=== PATIENT | female | born 1950 | race Caucasian/White ===

== ENCOUNTER → 2017-02-24 | Outpatient (CLI) | payer MEDICARE ==
[~2017-02-24] MED LIST: ACYC-114 PO; ASCO-96 PO; ASPI-515 PO; CALCIUM PO; CETI10TA24 PO; CHOL10003 PO; CYAN10005 PO; FLAXSEED PO; FLUT9.9S NAS; GABA300C10 PO; LORA0.5T PO; LOSA50TA6 PO; MAGNESIUM PO; METH500T7 PO; MULT-516 PO; OMEP-110 PO; PARO40TA3 PO; ROSU10TA PO; ROSU40TA PO; TRAM50TA2 PO; TRIA1TAB3 PO; UBID100C11 PO; UBID200C4 PO
== END | disposition home or self-care (01) ==
LOC: CFH 12:45
PROVIDERS: ATTEND Family Medicine
DX: Z12.31 Encounter for screening mammogram for malignant neoplasm of breast (principal)
CPT/HCPCS: G0202